=== PATIENT | male | born 1995 | race Caucasian/White ===

== ENCOUNTER 2017-12-02 16:54 | Emergency (ER) | payer SELFPAY ==
[~2017-12-02] VITALS: Ht 167.6 cm; Wt 79.5 kg
[2017-12-02 17:27] LABS: CREATININE, serum 1.2 mg/dL (0.66-1.25); POTASSIUM 3.5 mmol/L (3.4-5.0)
[2017-12-02 18:17] VITALS: BP 128/71; PULSE 88; TEMP 98.5
== END 2017-12-02 18:14 | disposition home or self-care (01) ==
LOC: COL.ER 16:54
PROVIDERS: Emergency Medicine
DX: T67.2XXA Heat cramp, initial encounter (principal)
CPT/HCPCS: J7030